=== PATIENT | female | born 2000 | race Caucasian/White ===

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

== ENCOUNTER 2021-01-22 08:39 | Emergency (ER) | payer OTHER, SELFPAY ==
--- NOTE | ~2021-01-22 | XR_ITS ---
EXAMINATION: XR foot RT 2V INDICATION: Right foot pain TECHNIQUE: Two views of the right foot are obtained. COMPARISON: None available FINDINGS: There is no fracture, dislocation, or subluxation. The joint spaces are normal. There is mi ld dorsal soft tissue swelling of the foot. IMPRESSION: 1. No acute osseous abnormality. Reviewed, dictated and finalized at location A.
[2021-01-22 08:49] VITALS: BP 127/79; PULSE 100; RESP 18; TEMP 36.8; O2SAT 95
--- NOTE | 2021-01-22 10:18 | ED.LOWEXIN ---
HPI - Extremity Injury (Lower) General Chief Complaint: Extremity Injury, Lower <Millie De Leon PA-C - Last Filed: 01/22/21 10:21> Stated Complaint: foot injury <Millie De Leon PA-C - Last Filed: 01/22/21 10:21> Time Seen by Provider: 01/22/21 10:11 <Millie De Leon PA-C - Last Filed: 01/22/21 10:21> Source: patient <Millie De Leon PA-C - Last Filed: 01/22/21 10:21> Mode of arrival: wheelchair <Millie De Leon PA-C - Last Filed: 01/22/21 10:21> Limitations: no limitations <Millie De Leon PA-C - Last Filed: 01/22/21 10:21> History of Present Illness HPI Narrative: This is a 20-year-old female that presents to the emergency department for right foot injury sustained last night. Reports she was carrying in groceries and cans of chicken fell on her foot. Reports bruising and pain to the area. The pain is making it difficult for her to ambulate on the foot. Denies decreased range of motion or numbness. <Millie De Leon PA-C - Last Filed: 01/22/21 10:21> Related Data Allergies/Adverse Reactions: Allergies Allergy/AdvReac Type Severity Reaction Status Date / Time Penicillins Allergy Severe Swelling Verified 11/24/19 21:32 of Lip/Tongue/Throat <Millie De Leon PA-C - Last Filed: 01/22/21 10:21> Review of Systems Review of Systems: CONSTITUTIONAL: Denies fever MUSCULOSKELETAL: Reports joint pain, and myalgia. NEUROLOGIC: Denies numbness <Millie De Leon PA-C - Last Filed: 01/22/21 10:21> All systems reviewed & are unremarkable except as noted in HPI and below <Millie De Leon PA-C - Last Filed: 01/22/21 10:21> PMFSH Past Medical History Medical History: Medical History (Updated 01/22/21 @ 10:21 by Millie De Leon PA-C) No active medical problems <MARINA Hamilton Last Filed: 01/22/21 10:21> Social History Social History: Social History (Updated 01/22/21 @ 10:19 by Millie De Leon PA-C) Smoking status: Never smoker Substance use: current Substance use type: marijuana Gender identity (if verbalized by the patient): Female <Millie De Leon PA-C - Last Filed: 01/22/21 10:21> Exam Narrative: GENERAL: Well-appearing, well-nourished, and in no acute distress. HEAD: Normocephalic, atraumatic. EYES: EOMI. EXTREMITIES: Normal range of motion. No edema or obvious deformity. Normal DP pulses. Normal sensation SKIN: Warm, dry, no rash. NEURO: No focal deficits. Alert and oriented x3. PSYCH: Normal mood and affect <Millie De Leon PA-C - Last Filed: 01/22/21 10:21> Course OFFICE WORKER/PA Physician Supervision I did not see this patient nor was the care plan discussed with me. I was available for evaluation and consultation, I agree with the documentation as above <Kenn Schneider MD - Last Filed: 01/22/21 13:20> Vital Signs Vital signs: Vital Signs Temperature 36.8 C 01/22/21 08:49 Pulse Rate 100 01/22/21 08:49 Respiratory Rate 18 01/22/21 08:49 Blood Pressure 127/79 01/22/21 08:49 Pulse Oximetry 95 01/22/21 08:49 Temperature 36.5 C 01/22/21 10:36 Pulse Rate 80 01/22/21 10:36 Respiratory Rate 16 01/22/21 10:36 Blood Pressure 112/69 01/22/21 10:36 Pulse Oximetry 100 01/22/21 10:36 <Millie De Leon PA-C - Last Filed: 01/22/21 10:21> Vital Signs Temperature 36.8 C 01/22/21 08:49 Pulse Rate 100 01/22/21 08:49 Respiratory Rate 18 01/22/21 08:49 Blood Pressure 127/79 01/22/21 08:49 Pulse Oximetry 95 01/22/21 08:49 Temperature 36.5 C 01/22/21 10:36 Pulse Rate 80 01/22/21 10:36 Respiratory Rate 16 01/22/21 10:36 Blood Pressure 112/69 01/22/21 10:36 Pulse Oximetry 100 01/22/21 10:36 <Kenn Schneider MD - Last Filed: 01/22/21 13:20> MDM - Extremity Injury (Lower) MDM Narrative Medical decision making narrative: Patient presents to the emergency department for right foot injury sustained last night. She is neurovascu
[2021-01-22 10:36] VITALS: BP 112/69; PULSE 80; RESP 16; TEMP 36.5; O2SAT 100
== END 2021-01-22 10:40 | disposition home or self-care (01) ==
PROVIDERS: Emergency Provider Emergency Medicine
DX: S90.31XA Contusion of right foot, initial encounter (principal); W20.8XXA Other cause of strike by thrown, projected or falling object, initial encounter
CPT/HCPCS: 73620; 99283

== ENCOUNTER 2021-02-13 09:49 | Emergency (ER) | payer OTHER, SELFPAY ==
[2021-02-13 10:17] VITALS: BP 120/85; PULSE 99; RESP 18; TEMP 36.7; O2SAT 100
--- NOTE | 2021-02-13 11:13 | ED.URI ---
HPI - URI/Sore Throat General Chief Complaint: Upper Respiratory Infection Stated Complaint: upper resp infection Time Seen by Provider: 02/13/21 10:08 Source: patient Mode of arrival: ambulatory Limitations: no limitations History of Present Illness HPI Narrative: This is a 20 year old female that presents to the ER for cold symptoms noted over the last couple of days. Reports cough, congestion, and sore throat. She is not Covid vaccinated. Denies fever or shortness of breath. Related Data Allergies Allergy/AdvReac Type Severity Reaction Status Date / Time Penicillins Allergy Severe Swelling Verified 02/13/21 10:14 of Lip/Tongue/Throat Review of Systems Review of Systems: CONSTITUTIONAL: Denies fever ENT: Reports rhinorrhea, congestion, sore throat RESPIRATORY: Reports cough. Denies dyspnea. All systems reviewed & are unremarkable except as noted in HPI and below PMFSH Past Medical History Medical History (Updated 02/13/21 @ 11:51 by Millie De Leon PA-C) No active medical problems Social History Social History (Updated 01/22/21 @ 10:19 by Millie De Leon PA-C) Smoking status: Never smoker Substance use: current Substance use type: marijuana Gender identity (if verbalized by the patient): Female Exam Narrative: GENERAL: Well-appearing, well-nourished, and in no acute distress. HEAD: Normocephalic, atraumatic. EYES: EOMI. ENT: Nares clear, no rhinorrhea or epistaxis. Mucous membranes moist. Oropharynx without tonsillar hypertrophy, exudate or other lesions. Bilateral TMs pearly cantu non-bulging NECK: Supple. No adenopathy or masses. CHEST: Clear to auscultation. No respiratory distress. No wheezes rales or rhonchi HEART: Regular rate and rhythm. No murmur heard. Normal peripheral pulses. EXTREMITIES: Normal range of motion. No edema. SKIN: Warm, dry, no rash. NEURO: No focal deficits. Alert and oriented x3. PSYCH: Normal mood and affect Course Vital Signs Vital signs: Vital Signs Temperature 98.0 F 02/13/21 10:17 Pulse Rate 99 02/13/21 10:17 Respiratory Rate 18 02/13/21 10:17 Blood Pressure 120/85 02/13/21 10:17 Pulse Oximetry 100 02/13/21 10:17 Temperature 98.0 F 02/13/21 10:17 Pulse Rate 99 02/13/21 10:17 Respiratory Rate 18 02/13/21 10:17 Blood Pressure 120/85 02/13/21 10:17 Pulse Oximetry 100 02/13/21 10:17 MDM - URI/Sore Throat MDM Narrative Medical decision making narrative: Patient presents to the emergency department for cold symptoms present over the last 3 days. She is afebrile and nontoxic-appearing. Lungs are clear on exam. Influenza and strep screen negative. SARS-CoV-2 was sent. Patient was instructed on continued care of viral infection. She is to follow-up with her primary care doctor. She was given warnings to return to the ER Lab Data Attestation: I reviewed the patient's lab results. Labs: Lab Results 02/13/21 Range/Units 10:53 SARS-CoV-2 RNA (RT-PCR) Pending Influenza A Screen Negative Reference Range: Negative Influenza B Screen Negative Reference Range: Negative Strep Screen Presumptive Negative *(Reference Range: Negative)* Critical Care Time Critical Care Time Critical Care Time: No Discharge Plan Discharge Clinical Impression: Person under investigation for COVID-19 Upper respiratory infection Qualifiers: URI type: unspecified viral URI Qualified Code(s): J06.9 - Acute upper respiratory infection, unspecified Patient Disposition: Home, Self-Care Condition: Stable Instructions: Viral Syndrome (ED), COVID-19 (Coronavirus Disease 2019) (ED) Additional Instructions: Return to the emergency department for worsening symptoms, or any other concerns Remain well-hydrated, get plenty of rest, no work or stevan
[2021-02-13 18:14] LABS: SARS-CoV-2 RNA PCR Negative
== END 2021-02-13 12:03 | disposition home or self-care (01) ==
PROVIDERS: Physician Assistant; Emergency Provider Emergency Medicine; PCP Family Medicine
DX: J06.9 Acute upper respiratory infection, unspecified (principal); Z20.822 Contact with and (suspected) exposure to COVID-19
CPT/HCPCS: 87081; 87804; 87880; 99283; C9803; U0003; U0005

== ENCOUNTER 2021-09-01 13:59 | Emergency (ER) | payer OTHER, SELFPAY ==
[2021-09-01 14:01] VITALS: BP 128/80; PULSE 94; RESP 20; TEMP 36.4; O2SAT 100
--- NOTE | 2021-09-01 14:16 | PC.NURSE ---
PT STATES WHEN I SQUEEZE MY BREAST LIKE THIS DISCHARGE COMES OUT. PT REPORTS SOME TENDERNESS TO LEFT BREAST PROMPTED HER TO SQUEEZE IT
--- NOTE | 2021-09-01 14:58 | ED.GENADULT ---
HPI - General Adult General Chief complaint: Unspecified Stated complaint: breast pain Time Seen by Provider: 09/01/21 14:56 History of Present Illness HPI narrative: 21-year-old female presents the emergency room for evaluation of breast pain bilaterally. Patient states that she has noticed a milky discharge from both nipples when she aggressively twist her nipples. Patient denies fever. Denies breast masses or lumps. Denies history of cancer. Related Data Allergies Allergy/AdvReac Type Severity Reaction Status Date / Time Penicillins Allergy Severe Swelling Verified 02/13/21 10:14 of Lip/Tongue/Throat Review of Systems Review of Systems: CONSTITUTIONAL: Denies fever, chills, or sweats. EYES: Denies visual changes, redness, or discharge. ENT: Denies rhinorrhea, congestion, sore throat, or otalgia. CARDIOVASCULAR: Denies chest pain, palpitations, or edema. RESPIRATORY: Denies cough or dyspnea. GASTROINTESTINAL: Denies abdominal pain, nausea, vomiting, or diarrhea. GENITOURINARY: Denies dysuria or hematuria. SKIN: Reports nipple discharge MUSCULOSKELETAL: Denies back pain, joint pain, or myalgia. NEUROLOGIC: Denies headache, numbness, dizziness, or weakness. PSYCHIATRIC: Denies anxiety or depression. [facility] Past Medical History Medical History No active medical problems Social History Social History Smoking status: Never smoker Substance use: current Substance use type: marijuana Gender identity (if verbalized by the patient): Female Exam Narrative: GENERAL: Well-appearing, well-nourished, and in no acute distress. HEAD: Normocephalic, atraumatic. EYES: PERRLA and EOMI. CHEST: Clear to auscultation. No respiratory distress. No wheezes rales or rhonchi HEART: Regular rate and rhythm. No murmur heard. Normal peripheral pulses. ABDOMEN: Soft, nontender, nondistended, normal active bowel sounds. EXTREMITIES: Normal range of motion. No edema. BREAST: No observable discharge noted. No surrounding erythema, tenderness, or underlying fluctuant or indurated masses to either breast. SKIN: Warm, dry, no rash. NEURO: No focal deficits. Alert and oriented x3. PSYCH: Normal mood and affect. Course Vital Signs Vital signs: Vital Signs Temperature 36.4 C L 09/01/21 14:01 Pulse Rate 94 09/01/21 14:01 Respiratory Rate 20 09/01/21 14:01 Blood Pressure 128/80 09/01/21 14:01 Pulse Oximetry 100 09/01/21 14:01 Oxygen Delivery Room Air 09/01/21 14:01 Temperature 36.4 C L 09/01/21 14:01 Pulse Rate 94 09/01/21 14:01 Respiratory Rate 20 09/01/21 14:01 Blood Pressure 128/80 09/01/21 14:01 Pulse Oximetry 100 09/01/21 14:01 Oxygen Delivery Room Air 09/01/21 14:01 Medical Decision Making Vital Signs Vital Signs: Vital Signs Temperature 36.4 C L 09/01/21 14:01 Pulse Rate 94 09/01/21 14:01 Respiratory Rate 20 09/01/21 14:01 Blood Pressure 128/80 09/01/21 14:01 Pulse Oximetry 100 09/01/21 14:01 Oxygen Delivery Room Air 09/01/21 14:01 Temperature 36.4 C L 09/01/21 14:01 Pulse Rate 94 09/01/21 14:01 Respiratory Rate 20 09/01/21 14:01 Blood Pressure 128/80 09/01/21 14:01 Pulse Oximetry 100 09/01/21 14:01 Oxygen Delivery Room Air 09/01/21 14:01 Lab Data Labs: UCG Bedside Result Negative Reference Range: Negative Discharge Plan Discharge Clinical Impression: Breast pain Patient Disposition: Home, Self-Care Condition: Stable Instructions: Antibiotic Form Additional Instructions: Follow-up with your primary care physician or REGISTRATION REPRESENTATIVE as necessary. Prescriptions: No Action ibuprofen 600 mg tablet 600 mg PO Q6H PRN (Reason: pain) Qty: 14 0RF Follow-up/Referrals: Kem Lee MD [Primary Care Provider] - Time o
[2021-09-01 15:30] VITALS: BP 118/70; PULSE 78; RESP 16; TEMP 36.3; O2SAT 100
== END 2021-09-01 15:32 | disposition home or self-care (01) ==
PROVIDERS: Emergency Provider Nurse Practitioner Family; PCP Family Medicine
DX: N64.4 Mastodynia (principal)
CPT/HCPCS: 81025; 99283

== ENCOUNTER 2022-01-25 11:43 | Emergency (ER) | payer OTHER, SELFPAY ==
[2022-01-25 11:55] VITALS: BP 142/85; PULSE 102; RESP 16; TEMP 37; O2SAT 99
--- NOTE | 2022-01-25 12:34 | ED.URI ---
HPI - URI/Sore Throat General Chief Complaint: Upper Respiratory Infection Stated Complaint: cough Time Seen by Provider: 01/25/22 12:34 Source: patient, RN notes reviewed and old records reviewed Mode of arrival: ambulatory Limitations: no limitations History of Present Illness HPI Narrative: 21-year-old female presents to the [facility] with complaints of cough and sinus congestion for 2 days. Reports that her roommate and his 2 children are sick as well. Has felt feverish, did not take her temperature. Has taken Sudafed yesterday. Related Data Allergies Allergy/AdvReac Type Severity Reaction Status Date / Time Penicillins Allergy Severe Swelling Verified 02/13/21 10:14 of Lip/Tongue/Throat Review of Systems Review of Systems: All systems reviewed & are unremarkable except as noted in HPI and below Constitutional: Constitutional: Reports no additional constitutional complaints, Denies chills and Denies fever(s) Eyes: Eyes: Reports no additional eye complaints ENT: Reports as per HPI and Reports nasal congestion Cardiovascular: Cardiovascular: Reports no additional cardiovascular complaints Respiratory: Respiratory: Reports as per HPI, Reports cough and Denies dyspnea Gastrointestinal: Gastrointestinal: Reports no additional gastrointestinal complaints Musculoskeletal: Musculoskeletal: Reports no additional musculoskeletal complaints Integumentary/Breasts: Skin/Breast: Reports system reviewed and no additional complaints, except as docu Neurologic: Reports system reviewed and no additional complaints, except as documented Psychiatric: Psychiatric: Reports no additional psychiatric complaints Allergic/Immunologic: Allergic/Immunologic: Reports no additional allergic/immunologic complaints PMFSH Past Medical History Medical History No active medical problems Social History Social History Smoking status: Never smoker Substance use: current Substance use type: marijuana Gender identity (if verbalized by the patient): Female Comments At the time of my signature, I reviewed and agree with the nursing past medical, surgical, social, and family history. There is no relevant family history pertinent to the patient complaint. Exam Const: General: healthy appearing, no acute distress, alert and well nourished Nutritional Appearance: well nourished Orientation/consciousness: patient oriented x3 Limitations: no limitations HENMT: Head: normal to inspection Ears: external ears normal, TM's normal bilaterally and EAC's normal Face/Nose/Sinus: Normal external nose present Face and sinus: normal facial exam Mouth: Yes Normal oral and palatal mucosa present, Yes lip normal and Yes moist mucous membranes Throat: posterior oropharynx normal and uvula midline Eyes: General: appearance normal, both eyes and all related structures Conjunctivae: conjunctivae normal Pupils: Equal, round and reactive pupils present Neck: Neck: normal visual inspection, no lymphadenopathy and no meningeal signs Chest: Chest palpation & inspection: normal inspection of the chest Resp: Effort & Inspection: normal respiratory effort and no use of accessory muscles Auscultation: clear to auscultation bilaterally, no crackles, no rales, no rhonchi and no wheezes Cardio: Rate: regular rate Rhythm: regular rhythm Skin: General skin exam: normal color Rashes: no rashes Wounds: no wounds Neuro: General: patient oriented x3, moves all extremities, no meningeal signs and no focal motor deficits Cranial nerves: Yes Equal, round and reactive pupils present Speech: normal speech Gait exam (Neuro): Normal gait present Extrem: General: normal to inspection, full ROM and capillary refill normal Psych: Appearance: grossly normal and well kempt Mental Status: mental status grossly normal Affect: normal affect Attitude: c
== END 2022-01-25 13:07 | disposition home or self-care (01) ==
PROVIDERS: Emergency Provider Nurse Practitioner
DX: B34.9 Viral infection, unspecified (principal)
CPT/HCPCS: 87804; 99213; G0463

== ENCOUNTER 2022-02-12 14:47 | Emergency (ER) | payer OTHER, SELFPAY ==
[2022-02-12 16:50] VITALS: BP 109/80; PULSE 101; RESP 12; TEMP 36.1; O2SAT 100
--- NOTE | 2022-02-12 17:13 | ED.GENADULT ---
HPI - General Adult General Chief complaint: Upper Respiratory Infection Stated complaint: blisters/sore throat Time Seen by Provider: 02/12/22 17:14 Source: patient Mode of arrival: ambulatory Limitations: no limitations History of Present Illness HPI narrative: 21-year-old female patient presents to the [facility] with complaints of sore throat and a rash since yesterday. Patient states about 2 weeks ago she was given 15 a flu because she had some URI symptoms. Patient did test negative for flu but states symptoms did resolve. These symptoms that she is coming in with today it started yesterday. She noticed a rash on the lower portion of her belly. Patient states the rash is not itchy. Patient states she has also had really bad sore throat. Has had strep before in the past but only 1 time. Denies any fevers, body aches or chills. Patient is currently 6 weeks . Related Data Allergies Allergy/AdvReac Type Severity Reaction Status Date / Time Penicillins Allergy Severe Swelling Verified 02/12/22 16:22 of Lip/Tongue/Throat Review of Systems Review of Systems: CONSTITUTIONAL: Denies fever, chills, or sweats. EYES: Denies visual changes, redness, or discharge. ENT: Denies rhinorrhea, congestion, sore throat, or otalgia. CARDIOVASCULAR: Denies chest pain, palpitations, or edema. RESPIRATORY: Denies cough or dyspnea. GASTROINTESTINAL: Denies abdominal pain, nausea, vomiting, or diarrhea. GENITOURINARY: Denies dysuria or hematuria. SKIN: Denies rash or itching. MUSCULOSKELETAL: Denies back pain, joint pain, or myalgia. NEUROLOGIC: Denies headache, numbness, or weakness. PSYCHIATRIC: Denies anxiety or depression. [facility] Past Medical History Medical History (Updated 02/12/22 @ 17:55 by HAMILTON Mckeon) No active medical problems Social History Social History Smoking status: Never smoker Substance use: current Substance use type: marijuana Gender identity (if verbalized by the patient): Female Comments At the time of my signature I agree with nursing past medical history, surgical, social, and family history. There is no relevant family history pertinent to the presenting complaint. Exam Narrative: GENERAL: ill-appearing, well-nourished, and in no acute distress. HEAD: Normocephalic, atraumatic. EYES: PERRLA and EOMI. ENT: Nares clear, no rhinorrhea or epistaxis. Mucous membranes moist. Posterior pharynx with erythema and 3+ tonsil enlargement. No exudates or lesions present. NECK: Supple. No lymphadenopathy CHEST: Clear to auscultation. No respiratory distress. HEART: Regular rate and rhythm. No murmur heard. Normal peripheral pulses. ABDOMEN: Soft, nontender, nondistended, normal active bowel sounds. EXTREMITIES: Normal range of motion. No edema. SKIN: Warm, dry, no rash. Patient has a viral exanthem rash noted to her trunk and her back. No itchy noted. NEURO: No focal deficits. Alert and oriented x3. Course Course Level of Care: Express Care Visit Reevaluation(s) Reevaluation #1: Re-evaluated patient. Discussed with her that all the tests have come back negative however given fact that she large tonsils, pain to the tonsils as well as a viral exanthem rash I do suspect highly suspect this is most likely a strep infection. We will treat her today with antibiotics see if this improves. I highly recommend she follow-up with her OBGYN/primary doctor especially if her symptoms do not resolve. Vital Signs Vital signs: Vital signs reviewed Medical Decision Making MDM Narrative Medical decision making narrative: Daycare patient is tested for day today for strep. Patient's strep did come back negative we will send off for a culture to the lab. We are also going to test today for COVID, flu and mono. I will reassess her once these have resulted. Differential Diagnosis Differential Diagnosis: Differential diagnosis: A
== END 2022-02-12 18:04 | disposition home or self-care (01) ==
PROVIDERS: Emergency Provider Nurse Practitioner Family
DX: O99.511 Diseases of the respiratory system complicating pregnancy, first trimester (principal); J02.9 Acute pharyngitis, unspecified; O98.511 Other viral diseases complicating pregnancy, first trimester; B33.8 Other specified viral diseases; B09 Unspecified viral infection characterized by skin and mucous membrane lesions; Z3A.01 Less than 8 weeks gestation of pregnancy; Z20.822 Contact with and (suspected) exposure to COVID-19; O99.321 Drug use complicating pregnancy, first trimester; F12.90 Cannabis use, unspecified, uncomplicated
CPT/HCPCS: 36416; 86308; 87081; 87426; 87804; 87880; 99213; C9803; G0463

== ENCOUNTER 2022-09-03 12:15 | Emergency (ER) | payer OTHER, SELFPAY ==
[2022-09-03 12:23] VITALS: BP 154/97; PULSE 87; RESP 16; TEMP 36.5; O2SAT 98
--- NOTE | 2022-09-03 12:33 | ED.SKABFB ---
HPI - Skin/Abscess/Foreign Bdy General Chief complaint: Skin/Abscess/Foreign Body Stated complaint: Insect Bite Time Seen by Provider: 09/03/22 12:25 Source: patient Mode of arrival: ambulatory Limitations: no limitations History of Present Illness HPI narrative: Ale is a 22-year-old female patient presenting to the clinic today with complaints possible spider bite to the right lateral side of her abdomen. She reports she 1st noticed it last night. Thought that there was an insect that may have bit her. Does have a black spot in the middle of the insect bite. States the area is painful/stinging to palpation. Patient is 35 weeks . Related Data Home Medications Medication Instructions Recorded Confirmed cholecalciferol (vitamin D3) 100 50,000 unit PO WEEKLY 09/03/22 09/03/22 mcg (4,000 unit) capsule omeprazole 20 mg capsule,delayed 20 mg PO DAILY 09/03/22 09/03/22 release prenat.vits,corine,[id number] 1 tablet PO DAILY 09/03/22 09/03/22 sertraline 50 mg tablet 50 mg PO DAILY 09/03/22 09/03/22 Allergies Allergy/AdvReac Type Severity Reaction Status Date / Time Penicillins Allergy Severe Swelling Verified 02/12/22 16:22 of Lip/Tongue/Throat Review of Systems Review of Systems: Pertinent positives per HPI. Patient denies any fever, chills, rash, headache, visual changes, dizziness, cough, shortness of breath, chest pain, palpitations, nausea, vomiting, diarrhea, constipation, abdominal pain, or any urinary issues. PMFSH Past Medical History Medical History No active medical problems Social History Social History Smoking status: Never smoker Substance use: current Substance use type: marijuana Gender identity (if verbalized by the patient): Female Comments At the time of my signature, I reviewed and agree with the nursing past medical, surgical, social, and family history. There is no relevant family history pertinent to the patient complaint. Exam Narrative: General: Well-developed, well nourished, in no apparent distress Head: Normocephalic, atraumatic. Cardio: Regular rate and rhythm, s1 and s2 normal, no murmur appreciated. Resp: Clear to auscultation bilaterally, no rhonchi, rales, wheezing or rubs. Integumentary: [place], warm, and dry, red raised painful insect bite to the right lateral side abdomen with black spot in the center, induration measuring 1 cm by 0.5 cm, no fluctuance, no drainage Course Course Emergency Course: Portions of this record may have been created with voice recognition software. Level of Care: Express Care Visit Vital Signs Vital signs: Vital Signs Temperature 36.5 C 09/03/22 12:23 Pulse Rate 87 09/03/22 12:23 Respiratory Rate 16 09/03/22 12:23 Blood Pressure 154/97 H 09/03/22 12:23 Pulse Oximetry 98 09/03/22 12:23 Oxygen Delivery Room Air 09/03/22 12:23 Temperature 36.5 C 09/03/22 12:23 Pulse Rate 87 09/03/22 12:23 Respiratory Rate 16 09/03/22 12:23 Blood Pressure 154/97 H 09/03/22 12:23 Pulse Oximetry 98 09/03/22 12:23 Oxygen Delivery Room Air 09/03/22 12:23 Vital signs reviewed MDM - Skin/Abscess/Foreign Bdy MDM Narrative Medical decision making narrative: At the time of visit patient is resting comfortably on the exam table. I suspect patient has an infected insect bite. Will place the patient on clindamycin. Patient has penicillin allergy. Supportive measures were discussed with the patient she voiced understanding discharge instructions agrees to treatment plan Differential Diagnosis Differential diagnosis: Likely abscess of skin or subcutaneous tissue, urticaria, cellulitis, insect bites, impetigo and contact dermatitis Discharge Plan Discharge Clinical Impression: Infected insect bite Qualifiers: Encounter type: initial encounter
== END 2022-09-03 12:43 | disposition home or self-care (01) ==
PROVIDERS: Emergency Provider Nurse Practitioner Family
DX: O9A.213 Injury, poisoning and certain other consequences of external causes complicating pregnancy, third trimester (principal); O99.713 Diseases of the skin and subcutaneous tissue complicating pregnancy, third trimester; Z3A.35 35 weeks gestation of pregnancy; S30.861A Insect bite (nonvenomous) of abdominal wall, initial encounter; W57.XXXA Bitten or stung by nonvenomous insect and other nonvenomous arthropods, initial encounter; L08.9 Local infection of the skin and subcutaneous tissue, unspecified; O99.323 Drug use complicating pregnancy, third trimester; F12.90 Cannabis use, unspecified, uncomplicated
CPT/HCPCS: 99213; G0463

== ENCOUNTER 2025-03-15 20:47 | Emergency (ER) | payer OTHER, SELFPAY ==
[2025-03-15 20:58] VITALS: BP 146/93; PULSE 118; RESP 18; TEMP 36.4; O2SAT 100
[2025-03-15 22:21] LABS: BEDSIDEPREGUCG Positive (Negative)
[2025-03-15 22:36] LABS: Add Urine Microscopic? NO; Appearance Urine Clear (Clear); Glucose Urine UA Negative (Negative); Leukocyte Esterase Ur Negative LEU/UL (Negative); Nitrate Urine Negative (Negative); Specific Grav Ur 1.004 (1.001-1.035)
[2025-03-15 22:40] LABS: Hematocrit 41.6 % (37.0-47.0); Hemoglobin 14.5 g/dL (12.0-15.0); Immature Granulocyte Percent A 0.8 % (0-0.5); Lymphocytes Absolute Auto 3.45 K/mm3 (0.9-3.2); Mean Corpuscular HGB Conc 34.9 g/dl (32-36); Mean Corpuscular Hemoglobin 30.6 pg (26-34); Mean Corpuscular Volume 87.8 fl (80-100); Nucleated Red Blood Cells Absolute Auto 0.000 K/mm3 (0.0-0.012); Nucleated Red Blood Cells Perc 0.0 % (0.0-0.2); Platelet Count Result 291 k/mm3 (150-375); Red Blood Count 4.74 M/mm3 (4.2-5.4); White Blood Count 12.8 K/mm3 (4.5-10.0)
[2025-03-15 22:47] LABS: Alanine Aminotransferase 16 U/L (6-35); Albumin Level 4.2 g/dL (3.5-5.1); Alkaline Phosphatase 66 U/L (38-126); Anion Gap 8 mmol/L (4-12); Aspartate Amino Transferase 19 U/L (14-36); Bilirubin,Total 0.3 mg/dL (0.2-1.3); Blood Urea Nitrogen 8 mg/dL (7-17); Calcium 9.6 mg/dL (8.4-10.2); Carbon Dioxide 21 mmol/L (22-30); Chloride 108 mmol/L (98-107); Estimated CRCL calculation 144 ml/min; Estimated Glomerular Filt Rate > 60; Glucose 114 mg/dL (65-110); Lipase 42 U/L (23-300); Potassium 3.6 mmol/L (3.4-5.0); Sodium 137 mmol/L (137-145); Total Protein 7.5 g/dL (6.3-8.2)
[2025-03-15] MEDS: LACTATED RINGERS 1,000 ML 999 ML IV CONT (22:52)
[2025-03-15] MEDS: ONDANSETRON INJ 4 MG/2 ML VIAL IV PUSH (22:53)
[2025-03-15] MEDS: FAMOTIDINE 20 MG/2 ML VIAL IV PUSH (22:53)
--- NOTE | 2025-03-15 23:39 | ED_ITS ---
HPI - Nausea/Vomiting/Diarrhea General Chief complaint: Nausea/Vomiting/Diarrhea Stated complaint: 14 wks preg, diarrhea and hot flashes Time Seen by Provider: 03/15/25 22:34 Source: patient Mode of arrival: ambulatory Limitations: no limitations History of Present Illness HPI Narrative: This is a 25-year-old female that presents to the emergency department with nausea and vomiting in . Reports she is about 14 weeks . She has not seen an OB yet. She has had some nausea, vomiting and diarrhea. Ongoing over the last several weeks. Denies fevers. No vaginal bleeding. Related Data Home Medications ?Medication ?Instructions ?Recorded ?Confirmed ?Last Taken ?Type cholecalciferol (vitamin D3) 100 50,000 unit PO WEEKLY 09/03/22 09/03/22 Unknown History mcg (4,000 unit) capsule omeprazole 20 mg capsule,delayed 20 mg PO DAILY 09/03/22 Unknown History release prenat.vits,corine,fwv-[id number]-eqybe 1 tablet PO DAILY 09/0309/03/22 Unknown History sertraline 50 mg tablet 50 mg PO DAILY 09/03/2208/25 Unknown History Allergies Allergy/AdvReac Type Severity Reaction Status Date / Time Penicillins Allergy Severe Swelling Verified 03/15/25 21:02 of Lip/Tongue/Throat Review of Systems 2 Review of Systems: All systems reviewed & are unremarkable except as noted in HPI and below PMFSH Past Medical History Medical History No active medical problems Social History Social History Smoking status: Never smoker Substance use: current Substance use type: marijuana Gender identity (if verbalized by the patient): Female Exam 2 Narrative: GENERAL: Well-appearing, well-nourished, and in no acute distress. HEAD: Normocephalic, atraumatic. EYES: EOMI. CHEST: Clear to auscultation. No respiratory distress. No wheezes rales or rhonchi HEART: Regular rate and rhythm. No murmur heard. Normal peripheral pulses. ABDOMEN: Soft, nontender, nondistended, normal active bowel sounds. EXTREMITIES: Normal range of motion. No edema. SKIN: Warm, dry, no rash. NEURO: No focal deficits. Alert and oriented x3. PSYCH: Normal mood and affect Course Vital Signs Vital signs: Vital Signs Temperature 97.5 F L 03/15/25 20:58 Pulse Rate 118 H 03/15/25 20:58 Respiratory Rate 18 03/15/25 20:58 Blood Pressure 146/93 H 03/15/25 20:58 Pulse Oximetry 100 03/15/25 20:58 Oxygen Delivery Room Air 03/15/25 20:58 Temperature 98.5 F 03/16/25 00:05 Pulse Rate 99 03/16/25 00:05 Respiratory Rate 16 03/16/25 00:05 Blood Pressure 127/88 03/16/25 00:05 Pulse Oximetry 100 03/16/25 00:05 Oxygen Delivery Room Air 03/15/25 20:58 Procedures Other Procedure Procedure 1: Other Procedure: Bedside ultrasound shows positive cardiac motion and activity [facility] Narrative Medical decision making narrative: Patient presents the emergency department for nausea vomiting . She is afebrile and nontoxic appearing. Tachycardic upon arrival, this normalized with IV fluids. CBC with mild leukocytosis of 12.8. Metabolic panel without concerning findings. Urine without evidence of infection. COVID and flu tests are negative. Bedside ultrasound shows positive cardiac motion and activity. Patient updated on her workup. She is to follow up with her OB. She was given warnings to return to the ER Differential Diagnosis Differential Diagnosis: Nausea and vomiting in , dehydration, electrolyte derangement, UTI, COVID, influenza Lab Data [facility] Lab Attestation statement: I personally reviewed the patient's lab results. 03/15/25 22:31 03/15/25 22:31 Labs: Lab Results 03/15/25 03/15/25 03/15/25 Range/Units 22:19 22:31 23:35 WBC 12.8 H (4.5-10.0) K/mm3 RBC 4.74 (4.2-5.4) M/mm3 Hgb 14.5 (12.0-15.0) g/dL Hct 41.6 (37.0-47.0) % MCV 87.8 (80-100) fl MCH 30.6 (26-34) pg MCHC 34.9 (32-36) g/dl RDW 11.9 (11.5-14.5) % Plt Count 291 (150-375) k/mm3 MPV 11.4 H (7.4-10.4) fl Immature Gran % (Auto) 0.8 H (0-0.5) % Neut % (Auto) 65.9 (45.5-73.1) % Lymph % (Auto) 26.9 (18.3-44.2) % [place] % (Auto) 5.4 (2.6-8.5) % Eos % (Auto) 0.5 (0-4.4) % Baso % (Auto) 0.5 (0.2-1.2) % Lymph # (Auto) 3.45 H (0.9-3.2) K/mm3 [place] # (Auto) 0.7 H (0.1-0.6) K/mm3 Eos # (Auto) 0.1 (0-0.3) K/mm3 Baso # (Auto) 0.1 (0.0-0.1) K/mm3 Abs Immat Gran (auto) 0.10 H (0.00-0.031) K/mm3 Absolute Neuts (auto) 8.5 H (1.3-6.7) K/mm3 Absolute Nucleated RBC 0.000 (0.0-0.012) K/mm3 Nucleated RBC % 0.0 (0.0-0.2) % Sodium 137 (137-145) mmol/L Potassium 3.6 (3.4-5.0) mmol/L Chloride 108 H (98-107) mmol/L Carbon Dioxide 21 L (22-30) mmol/L Anion Gap 8 (4-12) mmol/L BUN 8 (7-17) mg/dL Creatinine 0.50 L (0.7-1.0) mg/dL Estim Creat Clear Calc 144 ml/min Estimated GFR > 60 (59 - ) Glucose 114 H (65-110) mg/dL Calcium 9.6 (8.4-10.2) mg/dL Total Bilirubin 0.3 (0.2-1.3) mg/dL AST 19 (14-36) U/L ALT 16 (6-35) U/L Alkaline Phosphatase 66 (38-126) U/L Total Protein 7.5 (6.3-8.2) g/dL Albumin 4.2 (3.5-5.1) g/dL Lipase 42 (23-300) U/L Beta HCG, Quant 769576.00 mIU/ML Urine Color Yellow (Yellow) Urine Appearance Clear (Clear) Urine pH 6.5 (5.0-9.0) Ur Specific [place] 1.004 (1.001-1.035) Urine Protein Negative (Negative) mg/dL Urine Glucose (UA) Negative (Negative) mg/dL Urine Ketones Negative (Negative) mg/dL Ur Blood (Man) Negative (Negative) Urine Nitrate Negative (Negative) Urine Bilirubin Negative (Negative) Urine Urobilinogen 0.2 (<2.0) mg/dL Leukocyte Esterase Rfl Negative (Negative) YOSSI/UL POC Urine HCG, Qual Positive (Negative) Influenza A (RT-PCR) Negative (Negative) Influenza B (RT-PCR) Negative (Negative) SARS-CoV-2 RNA (RT-PCR) Negative (Negative) Critical Care Time Critical Care Time Critical Care Time: No Discharge Plan Discharge Clinical Impression: Nausea and vomiting during Patient Disposition: Home Condition: Stable Instructions: Nausea and Vomiting in (ED) Additional Instructions: Return to the ER if you experience fever, chest pain, shortness of breath, abdominal pain with nausea and vomiting, you are unable to keep down liquids or solids, pelvic cramping, vaginal bleeding, or any other symptoms that are concerning to you Take a Vitamin B6 and Unisom (25mg tab) nightly. You can get these medications over the counter. This will help prevent nausea. Reglan as needed for nausea. Small, frequent meals. Edgar diet. Remain well hydrated Follow up with your OB Patient Language: [place] Prescriptions: New metoclopramide HCl 5 mg tablet 5 mg PO Q6H PRN (Reason: nausea and vomiting) Qty: 14 0RF No Action omeprazole 20 mg capsule,delayed release(DR/EC) 20 mg PO DAILY sertraline 50 mg tablet 50 mg PO DAILY Vitamin Tablet 1 tablet PO DAILY Vitamin D3 100 mcg (4,000 unit) Capsule 50,000 unit PO WEEKLY clindamycin HCl 300 mg capsule 300 mg PO Q8H 7 Days Qty: 21 0RF Follow-up/Referrals: Noel,KIYA [place] [Primary Care Provider, Unknown]
[2025-03-16 00:05] VITALS: BP 127/88; PULSE 99; RESP 16; TEMP 36.9; O2SAT 100
[2025-03-16 00:15] LABS: Influenza A QL RT-PCR Negative (Negative); Influenza B QL RT-PCR Negative (Negative); SARS-CoV-2 RNA PCR Negative (Negative)
[2025-03-16 01:51] VITALS: BP 126/83; PULSE 87; RESP 16; O2SAT 87
== END 2025-03-16 01:55 | disposition home or self-care (01) ==
PROVIDERS: Emergency Medicine; Emergency Provider Physician Assistant; PCP Nurse Practitioner
DX: O21.9 Vomiting of pregnancy, unspecified (principal); Z20.822 Contact with and (suspected) exposure to COVID-19; Z3A.14 14 weeks gestation of pregnancy
CPT/HCPCS: 36415; 80053; 81003; 81025; 83690; 84702; 85025; 87636; 96361; 96374; 96375; 99284; J2405; J7120